=== PATIENT | female | born 1985 | race Caucasian/White ===

== ENCOUNTER 2017-04-20 18:42 | Emergency (ER) | payer OTHER ==
[~2017-04-20] VITALS: Ht 170.2 cm; Wt 153.0 kg
[2017-04-20] MEDS ORDERED: ATIV1TAB10 PO (18:50)
[2017-04-20] MEDS ORDERED: PROV100T25 PO (18:50)
[2017-04-20] MEDS ORDERED: LAMI25TA PO (18:50)
[2017-04-20] MEDS ORDERED: NORCO, ANEXSIA 5/325MG TABLET (HYDROcodone/ACETAMINOPHEN) PO ONE (20:30)
[2017-04-20 21:22] VITALS: BP 127/68
[2017-04-20] MEDS ORDERED: ROBA500T PO (21:23)
[2017-04-20] MEDS ORDERED: NORCOTAB PO (21:23)
--- NOTE | 2017-04-21 13:16 | REP ---
Right tibia-fibula four views : There is no fracture or dislocation. Mineralization and joint spaces are normal. There are no calcifications or foreign bodies. Impression: Negative right tibia-fibula . Signed by Milton Maier MD 04/21/2017 07:27 A
== END 2017-04-20 21:32 | disposition home or self-care (01) ==
LOC: M ED 18:42
DX: S39.012A Strain of muscle, fascia and tendon of lower back, initial encounter (principal); S80.11XA Contusion of right lower leg, initial encounter; V49.40XA Driver injured in collision with unspecified motor vehicles in traffic accident, initial encounter; Y92.410 Unspecified street and highway as the place of occurrence of the external cause; Y93.9 Activity, unspecified; Y99.8 Other external cause status; F41.9 Anxiety disorder, unspecified; F32.9 Major depressive disorder, single episode, unspecified; F17.200 Nicotine dependence, unspecified, uncomplicated; Z79.899 Other long term (current) drug therapy; Z88.8 Allergy status to other drugs, medicaments and biological substances

== ENCOUNTER 2017-09-22 09:58 | Emergency (ER) | payer OTHER ==
[2017-09-22] MEDS ORDERED: NS 1,000 ML IV (10:30)
[2017-09-22] MEDS ORDERED: ONDANSETRON 4MG/2ML VIAL (J2405) IV (10:30)
[2017-09-22] MEDS ORDERED: KETOROLAC 30 MG/ML VIAL (J1885) IV (10:30)
[2017-09-22] MEDS: ONDANSETRON 4 MG ORAL DISINTEGRATING TAB (S0181) PO (10:38)
[2017-09-22] MEDS: KETOROLAC TROMETHAMINE 10 MG TAB PO (10:38)
== END 2017-09-22 11:56 | disposition home or self-care (01) ==
LOC: M ED 09:58
DX: R11.0 Nausea (principal); R19.7 Diarrhea, unspecified; F31.9 Bipolar disorder, unspecified; Z79.899 Other long term (current) drug therapy; Z79.3 Long term (current) use of hormonal contraceptives; Z88.8 Allergy status to other drugs, medicaments and biological substances
CPT/HCPCS: 99283

== ENCOUNTER 2018-02-04 07:30 | Emergency (ER) | payer OTHER ==
[2018-02-04 09:16] LABS: BASO % 0.5 % (0.0-1.0); EOS # 0.2 10^3/uL (0.0-0.50); EOS % 2.4 % (0.0-3.0); HEMATOCRIT 41.4 % (36.0-47.0); HEMOGLOBIN 13.6 g/dl (12.0-15.5); IMMATURE GRANULOCYTE % 0.4 % (0-3.0); LYMPH # 2.1 10^3/uL (1.5-4.5); LYMPH % 25.1 % (24.0-44.0); MEAN CORPUSCULAR HEMOGLOBIN 28.9 pg (27.0-33.0); MEAN CORPUSCULAR HGB CONC 32.9 g/dl (32.0-36.5); MEAN CORPUSCULAR VOLUME 88.1 fl (80.0-96.0); MONO # 0.5 10^3/uL (0.0-0.8); MONO % 5.9 % (0.0-5.0); NEUTROPHILS # 5.5 10^3/uL (1.8-7.7); NEUTROPHILS % 65.7 % (36.0-66.0); PLATELET COUNT, AUTOMATED 357 10^3/uL (150-450); RED CELL DISTRIBUTION WIDTH 12.3 % (11.5-14.5); WHITE BLOOD COUNT 8.4 10^3/uL (4.0-10.0)
[2018-02-04] MEDS: PROMETHAZINE INJ 25 MG/ML VIAL (J2550) IV ×2 (09:19→10:36)
[2018-02-04] MEDS: GI COCKTAIL 50ML BTL(HYOSCYAMINE/MAALOX/LIDOCAINE VISCOUS)(1:3:1) PO (09:19)
[2018-02-04] MEDS: NS 1,000 ML IV (09:19)
[2018-02-04] MEDS: FAMOTIDINE IV BAG 20 MG in APPROPRIATE DILUENT 1 EA IV (09:19)
[2018-02-04 09:29] LABS: CONTROL LINE HCG INT CTR LINE PRESENT; HCG, SERUM QUALITATIVE NEGATIVE (NEGATIVE)
[2018-02-04 09:36] LABS: ALBUMIN 3.7 GM/DL (3.2-5.2); ALBUMIN/GLOBULIN RATIO 0.95 (1.00-1.93); ALKALINE PHOSPHATASE 63 U/L (45-117); ALT/SGPT 18 U/L (12-78); ANION GAP 6 MEQ/L (8-16); AST/SGOT 10 U/L (7-37); BILIRUBIN,DIRECT < 0.1 MG/DL (0.0-0.2); BILIRUBIN,TOTAL 0.2 MG/DL (0.2-1.0); BLOOD UREA NITROGEN 12 MG/DL (7-18); CALCIUM LEVEL 8.1 MG/DL (8.5-10.1); CARBON DIOXIDE LEVEL 24 MEQ/L (21-32); CHLORIDE LEVEL 111 MEQ/L (98-107); CREATININE FOR GFR 0.66 MG/DL (0.55-1.30); GLOMERULAR FILTRATION RATE > 60.0 (>60); GLUCOSE, FASTING 101 MG/DL (70-100); LIPASE 2373 U/L (73-393); POTASSIUM SERUM 4.2 MEQ/L (3.5-5.1); SODIUM LEVEL 141 MEQ/L (136-145); TOTAL PROTEIN 7.6 GM/DL (6.4-8.2)
[2018-02-04] MEDS: MORPHINE 2 MG/ML 1ML SYRINGE (J2270) IV (09:51)
== END 2018-02-04 10:47 | disposition home or self-care (01) ==
LOC: M ED 07:30
DX: K85.90 Acute pancreatitis without necrosis or infection, unspecified (principal); Z88.8 Allergy status to other drugs, medicaments and biological substances; Z79.899 Other long term (current) drug therapy
CPT/HCPCS: J2270

== ENCOUNTER 2018-02-05 10:12 | Emergency (ER) | payer OTHER ==
[2018-02-05 11:20] LABS: BASO # 0.1 10^3/uL (0.0-0.2); BASO % 0.6 % (0.0-1.0); EOS # 0.3 10^3/uL (0.0-0.50); EOS % 3.9 % (0.0-3.0); HEMATOCRIT 41.8 % (36.0-47.0); HEMOGLOBIN 13.6 g/dl (12.0-15.5); IMMATURE GRANULOCYTE % 0.3 % (0-3.0); LYMPH # 2.5 10^3/uL (1.5-4.5); LYMPH % 32.4 % (24.0-44.0); MEAN CORPUSCULAR HEMOGLOBIN 29.1 pg (27.0-33.0); MEAN CORPUSCULAR HGB CONC 32.5 g/dl (32.0-36.5); MEAN CORPUSCULAR VOLUME 89.5 fl (80.0-96.0); MONO # 0.7 10^3/uL (0.0-0.8); MONO % 8.7 % (0.0-5.0); NEUTROPHILS # 4.2 10^3/uL (1.8-7.7); NEUTROPHILS % 54.1 % (36.0-66.0); PLATELET COUNT, AUTOMATED 346 10^3/uL (150-450); RED BLOOD COUNT 4.67 10^6/uL (4.00-5.40); RED CELL DISTRIBUTION WIDTH 12.4 % (11.5-14.5); WHITE BLOOD COUNT 7.7 10^3/uL (4.0-10.0)
[2018-02-05 11:38] LABS: ALBUMIN 3.6 GM/DL (3.2-5.2); ALBUMIN/GLOBULIN RATIO 1.06 (1.00-1.93); ALKALINE PHOSPHATASE 49 U/L (45-117); ALT/SGPT 16 U/L (12-78); ANION GAP 6 MEQ/L (8-16); AST/SGOT 8 U/L (7-37); BILIRUBIN,DIRECT < 0.1 MG/DL (0.0-0.2); BILIRUBIN,TOTAL 0.3 MG/DL (0.2-1.0); BLOOD UREA NITROGEN 7 MG/DL (7-18); CALCIUM LEVEL 8.1 MG/DL (8.5-10.1); CARBON DIOXIDE LEVEL 27 MEQ/L (21-32); CHLORIDE LEVEL 109 MEQ/L (98-107); CREATININE FOR GFR 0.71 MG/DL (0.55-1.30); GLOMERULAR FILTRATION RATE > 60.0 (>60); GLUCOSE, FASTING 95 MG/DL (70-100); LIPASE 194 U/L (73-393); POTASSIUM SERUM 3.8 MEQ/L (3.5-5.1); SODIUM LEVEL 142 MEQ/L (136-145)
== END 2018-02-05 12:15 | disposition home or self-care (01) ==
LOC: M ED 10:12
DX: K85.90 Acute pancreatitis without necrosis or infection, unspecified (principal); F41.9 Anxiety disorder, unspecified; F32.9 Major depressive disorder, single episode, unspecified; F17.210 Nicotine dependence, cigarettes, uncomplicated; Z79.899 Other long term (current) drug therapy; Z88.8 Allergy status to other drugs, medicaments and biological substances; Z91.89 Other specified personal risk factors, not elsewhere classified
CPT/HCPCS: 83690

== ENCOUNTER 2018-07-25 14:56 | Emergency (ER) | payer OTHER | END 2018-07-25 15:43 | disposition home or self-care (01) | LOC: M ED 14:56 | DX: H65.03 Acute serous otitis media, bilateral (principal); J32.9 Chronic sinusitis, unspecified; R19.7 Diarrhea, unspecified; R11.0 Nausea; Z88.8 Allergy status to other drugs, medicaments and biological substances; Z79.899 Other long term (current) drug therapy; Z79.2 Long term (current) use of antibiotics; Z97.5 Presence of (intrauterine) contraceptive device | CPT/HCPCS: 99282 ==

== ENCOUNTER → 2018-10-09 | Outpatient (REF) | payer OTHER ==
[~2018-10-09] MED LIST: ATIV1TAB10 PO; AUGM875T28 PO; CIPR500T39; FLON1SPR NARES; IBUP80TA PO; LAMI25TA PO; MIRE1IUD IU; NORCOTAB PO; PERC5TAB12 PO; PROV100T25 PO; PROVIGIL; PYRI1TAB5 PO; ROBA500T PO; ZOFR4TAB14 PO
== END ==
LOC: M SFHCLERA 20:17
PROVIDERS: ATTEND Physician Assistant
DX: R39.9 Unspecified symptoms and signs involving the genitourinary system (principal)

== ENCOUNTER 2018-10-11 07:31 | Emergency (ER) | payer OTHER ==
[~2018-10-11] VITALS: Ht 170.2 cm; Wt 75.0 kg
[~2018-10-11 07:31] MED LIST changes: -CIPR500T39; -PYRI1TAB5 PO
[2018-10-11] MEDS ORDERED: CIPR500T39 (07:40)
[2018-10-11] MEDS ORDERED: KETOROLAC 30 MG/ML VIAL (J1885) IV ONE (08:15)
[2018-10-11] MEDS ORDERED: NS 1,000 ML IV ONE (08:15)
[2018-10-11 08:32] LABS: URINE PREG TEST NEGATIVE (NEGATIVE)
[2018-10-11 08:34] LABS: BASO % 0.5 % (0.0-1.0); EOS # 0.3 10^3/uL (0.0-0.50); HEMOGLOBIN 14.1 g/dl (12.0-15.5); LYMPH # 2.5 10^3/uL (1.5-4.5); MEAN CORPUSCULAR HEMOGLOBIN 29.8 pg (27.0-33.0); MEAN CORPUSCULAR HGB CONC 33.6 g/dl (32.0-36.5); MEAN CORPUSCULAR VOLUME 88.8 fl (80.0-96.0); MONO # 0.7 10^3/uL (0.0-0.8); MONO % 8.1 % (0.0-5.0); NEUTROPHILS # 4.7 10^3/uL (1.8-7.7); NEUTROPHILS % 57.2 % (36.0-66.0); PLATELET COUNT, AUTOMATED 356 10^3/uL (150-450); RED BLOOD COUNT 4.73 10^6/uL (4.00-5.40); WHITE BLOOD COUNT 8.3 10^3/uL (4.0-10.0)
[2018-10-11 08:56] LABS: BLOOD UREA NITROGEN 12 MG/DL (7-18); CALCIUM LEVEL 8.7 MG/DL (8.5-10.1); CARBON DIOXIDE LEVEL 27 MEQ/L (21-32); CHLORIDE LEVEL 106 MEQ/L (98-107); CREATININE FOR GFR 0.72 MG/DL (0.55-1.30); GLOMERULAR FILTRATION RATE > 60.0 (>60); GLUCOSE, FASTING 83 MG/DL (70-100); POTASSIUM SERUM 4.3 MEQ/L (3.5-5.1); SODIUM LEVEL 139 MEQ/L (136-145)
--- NOTE | 2018-10-11 09:34 | REP ---
CT abdomen and pelvis without IV or oral contrast: History: History of kidney stones. Abdomen and CVA pain. No comparison CT study. Comparison KUB April 10, 2015. 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 An IUD is seen in place in the right pelvis. The lung bases are clear on axial CT images. The liver and the spleen are normal in size and homogeneous in texture. No adrenal lesion is seen on either side. The pancreas has a normal appearance. No abnormality is noted in the gallbladder. The kidneys are morphologically intact. There is one tiny 2 mm calculus in the right mid kidney. No hydronephrosis is seen. No other intrarenal calculus is observed. No ureteral calculus is seen. No bladder calculus is seen. The uterus is tipped to the right and shows the IUD in place. No adnexal abnormality is seen. Normal appendix is seen posterior to the cecum. Small and large intestinal bowel loops are unremarkable. No bony abnormality is seen. No abdominal wall defect is observed. There is minimal subcutaneous fibrosis in the suprapubic anterior abdominal wall consistent with previous . Impression: A single tiny 2 mm calculus is seen intrarenal right mid kidney. No hydronephrosis or ureteral stone. Normal appendix. Otherwise negative CT study abdomen and pelvis. IUD in place in the uterus. Electronically Signed by Morgan Villafuerte MD 10/11/2018 06:48 P
[2018-10-11] MEDS ORDERED: PYRI1TAB5 PO (09:38)
[2018-10-11 09:51] VITALS: BP 116/76
== END 2018-10-11 09:53 | disposition home or self-care (01) ==
LOC: M ED 07:31
DX: N30.00 Acute cystitis without hematuria (principal); N20.0 Calculus of kidney; F17.210 Nicotine dependence, cigarettes, uncomplicated; F31.9 Bipolar disorder, unspecified; F41.9 Anxiety disorder, unspecified
CPT/HCPCS: 74176; 80048; 81001; 84703; 85025; 87086; 96361; 96374; 99284; J1885

== ENCOUNTER → 2020-08-01 | Outpatient (CLI) | payer OTHER ==
[~2020-08-01] MED LIST changes: +CIPR500T39; +HYDR-3715 PO; -NORCOTAB PO; +PYRI1TAB5 PO
--- NOTE | 2020-08-01 11:20 | REP ---
INDICATION: LOW BACK PAIN, HX OF STONES COMPARISON: None. TECHNIQUE: Supine view of the abdomen and pelvis. FINDINGS: Examination is insensitive for urinary tract calcifications. The bowel gas pattern suggests moderate fecal stasis without obstruction or perforation. No obvious organomegaly. Skeletal structures intact. IUD noted in the pelvis. IMPRESSION: Nonspecific bowel gas pattern with moderate fecal stasis. Examination is insensitive for the detection of urinary tract calcifications. <Electronically signed by Servando Lockhart > 08/01/20 [id number]
== END ==
LOC: M WUC 10:56
PROVIDERS: ATTEND Physician Assistant
DX: M54.5 Low back pain (principal); N20.9 Urinary calculus, unspecified

== ENCOUNTER → 2020-08-01 | Outpatient (REF) | payer OTHER | LOC: M LAB REF 15:40 → M WUC 15:40 | PROVIDERS: ATTEND Physician Assistant | DX: N20.9 Urinary calculus, unspecified (principal) ==